=== PATIENT | male | born 1960 | race Caucasian/White ===

== ENCOUNTER 2020-03-07 10:59 | Emergency (ER) | payer SELFPAY ==
[~2020-03-07] VITALS: Ht 177.8 cm; Wt 84.0 kg
[2020-03-07] MEDS ORDERED: IBUPROFEN 600MG TABLET PO STA (11:56)
[2020-03-07 12:08] LABS: BASOPHILS % 0.7 % (0.0-2.0); EOSINOPHILS % 1.6 % (0.0-5.0); LYMPHOCYTES % 14.2 % (20.0-50.0); MEAN CORPUSCULAR HEMOGLOBIN 31.2 pg (28.0-32.0); MEAN CORPUSCULAR VOLUME 90.8 fL (80.0-94.0); MEAN PLATELET VOLUME 8.8 fl (7.4-10.4); MONOCYTES % 6.4 % (2.0-8.0); NEUTROPHILS % 77.1 % (40.0-76.0); PLATELET 312 x1000/uL (130-400); RED BLOOD CELL COUNT 3.52 mill/uL (4.7-6.1); RED CELL DISTRIBUTION WIDTH 12.7 % (11.6-14.6)
[2020-03-07 12:18] LABS: CHLORIDE 111 mEq/L (98-107)
[2020-03-07 12:22] LABS: ETHANOL BLOOD < 10 mg/dL
[2020-03-08 02:15] VITALS: BP 146/61
== END 2020-03-08 02:55 | disposition home or self-care (01) ==
LOC: ER 10:59
DX: M79.662 Pain in left lower leg (principal); M79.661 Pain in right lower leg; Z59.0 Homelessness
CPT/HCPCS: 36415; 73590; 80053; 80307; 80320; 80329; 85025; 93970; 99285; G0480